=== PATIENT | male | born 1955 | race Two or more races ===

== ENCOUNTER 2018-01-23 13:07 | Emergency (ER) | payer SELFPAY ==
[~2018-01-23] VITALS: Ht 175.3 cm; Wt 110.0 kg
[2018-01-23 13:13] VITALS: BP 121/83
== END 2018-01-23 16:26 | disposition home or self-care (01) ==
LOC: ER 16:14
DX: S90.211A Contusion of right great toe with damage to nail, initial encounter (principal); E11.9 Type 2 diabetes mellitus without complications; Z87.891 Personal history of nicotine dependence; X58.XXXA Exposure to other specified factors, initial encounter; Y93.89 Activity, other specified; Y92.018 Other place in single-family (private) house as the place of occurrence of the external cause
CPT/HCPCS: 82962; 99282